=== PATIENT | male | born 1995 | race Caucasian/White ===

== ENCOUNTER 2017-05-17 01:43 | Emergency (ER) | payer OTHER ==
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
[2017-05-17 01:50] VITALS: TEMP 97.9
[2017-05-17 02:47] VITALS: BP 138/88; PULSE 85; RESP 14; O2SAT 97
== END 2017-05-17 02:48 | disposition home or self-care (01) ==
DX: S00.83XA Contusion of other part of head, initial encounter (principal); F10.920 Alcohol use, unspecified with intoxication, uncomplicated; W51.XXXA Accidental striking against or bumped into by another person, initial encounter; Y99.8 Other external cause status